=== PATIENT | female | born 1980 | race Hispanic/Latino ===

== ENCOUNTER → 2022-08-07 | Day surgery (SDC) | payer BC ==
[2022-08-05 12:57] LABS: BASOPHILS # (AUTO) 0.1 (0.0-0.1); BASOPHILS % 0.6 % (0.0-1.0); EOSINOPHILS # (AUTO) 0.3 (0.0-0.4); EOSINOPHILS % 3.3 % (0.0-6.0); HEMATOCRIT 49.9 % (34.2-44.1); HEMOGLOBIN 15.8 g/dL (12.0-16.0); LYMPHOCYTES # (AUTO) 2.2 (1.0-3.2); MEAN CORPUSCULAR HEMOGLOBIN 30.9 pg (28-32); MEAN CORPUSCULAR HGB CONC 31.7 g/dL (31-35); MEAN CORPUSCULAR VOLUME 97.7 fL (81-99); MONOCYTES # (AUTO) 0.7 (0.2-0.8); MONOCYTES % 8.5 % (4.4-11.3); NEUTROPHILS % 60.4 % (38.7-80.0); PLATELET COUNT 307 x10e3/uL (140-360); RED BLOOD COUNT 5.11 x10e6/uL (3.6-5.1); RED CELL DISTRIBUTION WIDTH 12.5 % (11.7-14.4)
[~2022-08-07] MED LIST: BENZONATATE200 MG PO; CLARITIN10 M2; CYCLOBENZAPRINE10 MG PO; LIDOCAINE HCL 2% LOCAL INJ 5 ML SDV VIAL INJ ONE; LOSARTAN POTASS25 MG PO; MELOXICAM7.5 MG PO; MIDAZOLAM HCL 2 MG/2 ML VIAL ONE; PROPOFOL IV EMULSION 10 MG/ML 20 ML VIAL ONE; PROTONIX20 MG PO; SERTRALINE HCL50 MG PO
[2022-08-07 10:45] VITALS: BP 117/72
== END | disposition home or self-care (01) ==
LOC: ENDO 08:00
PROVIDERS: ATTEND Internal Medicine Gastroenterology
DX: K20.90 Esophagitis, unspecified without bleeding (principal); K29.50 Unspecified chronic gastritis without bleeding; K29.80 Duodenitis without bleeding; K21.9 Gastro-esophageal reflux disease without esophagitis; Z71.3 Dietary counseling and surveillance; I10 Essential (primary) hypertension; J45.909 Unspecified asthma, uncomplicated; R42 Dizziness and giddiness; I49.9 Cardiac arrhythmia, unspecified; R63.4 Abnormal weight loss; N39.0 Urinary tract infection, site not specified; M54.9 Dorsalgia, unspecified; F41.9 Anxiety disorder, unspecified; F32.A Depression, unspecified; Z88.6 Allergy status to analgesic agent; Z01.810 Encounter for preprocedural cardiovascular examination; Z01.812 Encounter for preprocedural laboratory examination; Z79.899 Other long term (current) drug therapy; Z79.1 Long term (current) use of non-steroidal anti-inflammatories (NSAID); Z68.26 Body mass index [BMI] 26.0-26.9, adult; Z80.0 Family history of malignant neoplasm of digestive organs
CPT/HCPCS: 36415; 43239; 43450; 85025; 93005; C9113; J2001; J2250; J2704